=== PATIENT | female | born 1940 | race Caucasian/White ===

== ENCOUNTER 2018-12-25 13:45 | Emergency (ER) | payer MEDICARE, BC ==
[~2018-12-25] VITALS: Ht 170.2 cm; Wt 95.0 kg
[2018-12-25] MEDS ORDERED: ATENOLOL25 MG PO (14:21)
[2018-12-25] MEDS ORDERED: CIPROFLOXACN500 MG PO (14:21)
[2018-12-25] MEDS ORDERED: LORAZEPAM0.5 MG PO (14:22)
[2018-12-25] MEDS ORDERED: VFEND200 MG PO (14:22)
[2018-12-25] MEDS ORDERED: LISINOPRIL20 MG PO (14:22)
[2018-12-25] MEDS ORDERED: LYRICA50 MG PO (14:22)
[2018-12-25 14:31] LABS: HEMATOCRIT 25.1 % (37.0-47.0); HEMOGLOBIN 8.1 g/dl (12.0-16.0); IMMATURE GRANULOCYTES 0.7 % (0.0-5.0); MEAN CORPUSCULAR HGB CONC 32.3 g/L CALC (32.0-36.0); NEUT# 5.89 thou/uL (2.00-7.15); RED BLOOD COUNT 2.79 mill/uL (4.20-5.60); RED CELL DISTRI WIDTH 14.7 % (11.5-15.5)
[2018-12-25] MEDS ORDERED: DOXYCYC MONO100 M1 PO (14:38)
[2018-12-25] MEDS ORDERED: PREDNISONE50 MG PO (14:38)
[2018-12-25] MEDS ORDERED: CHERATUSSIN PO (14:38)
[2018-12-25 14:56] LABS: BUN 9 mg/dL (8-23); BUN/CREATININE RATIO 12 (12-20 (CALC)); CARBON DIOXIDE 27 mmol/l (22-30); CHLORIDE 101 mmol/l (95-108); CREATININE 0.8 mg/dL (0.5-1.0); GFR > 60 ML/MIN (>=60 (CALC)); GFR FOR AFR.AMER. > 60 ML/MIN (>=60 (CALC)); SODIUM 134 mmol/l (137-146)
[2018-12-25 15:01] LABS: ANION GAP 10 (6-22 (CALC)); POTASSIUM 4.1 mmol/l (3.5-5.1)
[2018-12-25] MEDS ORDERED: [UNRECOGNIZED DRUG - OTHER] PO (15:38)
[2018-12-25] MEDS ORDERED: VITAMIN D50000 UNIT PO (15:38)
[2018-12-25 15:46] LABS: ALBUMIN 2.4 g/dL (3.2-5.0); BILIRUBIN, TOTAL 0.3 mg/dL (0.0-1.4); TOTAL PROTEIN 4.9 g/dL (6.3-8.2)
[2018-12-25] MEDS ORDERED: PROAIR HFA108 MCG/AC PO (16:32)
[2018-12-25 16:44] VITALS: BP 125/51
== END 2018-12-25 16:44 | disposition home or self-care (01) ==
LOC: ED 13:45
PROVIDERS: Family Medicine
DX: J40 Bronchitis, not specified as acute or chronic (principal)

== ENCOUNTER 2019-01-01 16:52 | Emergency (ER) | payer MEDICARE, BC ==
[~2019-01-01] VITALS: Ht 170.2 cm; Wt 91.0 kg
[~2019-01-01 16:52] MED LIST: ATENOLOL25 MG PO; CHERATUSSIN PO; CIPROFLOXACN500 MG PO; DOXYCYC MONO100 M1 PO; LISINOPRIL20 MG PO; LORAZEPAM0.5 MG PO; LYRICA50 MG PO; PREDNISONE50 MG PO; PROAIR HFA108 MCG/AC PO; VFEND200 MG PO; VITAMIN D50000 UNIT PO; [UNRECOGNIZED DRUG - OTHER] PO
[2019-01-01] MEDS ORDERED: HYDROCODONE/ACE1 TAB PO (17:17)
[2019-01-01 18:06] LABS: IMMATURE GRANULOCYTES 1.9 % (0.0-5.0); MEAN CELL VOLUME 91.9 fL CALC (80.0-100.0); MEAN CORPUSCULAR HGB 28.5 pG CALC (26.0-32.0); NEUT# 9.23 thou/uL (2.00-7.15); RED BLOOD COUNT 3.58 mill/uL (4.20-5.60)
[2019-01-01 18:06] LABS: URINE BILIRUBIN - DIPSTICK NEGATIVE (NEGATIVE); URINE BLOOD DIPSTICK NEGATIVE (NEGATIVE); URINE COLOR YELLOW; URINE GLUCOSE - DIPSTICK NEGATIVE (NEGATIVE); URINE KETONE NEGATIVE (NEGATIVE); URINE LEUK ESTERASE NEGATIVE (NEGATIVE); URINE NITRITE - DIPSTICK NEGATIVE (Negative); URINE PROTEIN - DIPSTICK NEGATIVE (NEG-TRACE); URINE SPECIFIC GRAVITY <=1.005; URINE UROBILINOGEN - DIPSTICK 0.2 E.U./dL (0.2)
[2019-01-01 18:11] LABS: HEMATOCRIT 32.9 % (37.0-47.0); HEMOGLOBIN 10.2 g/dl (12.0-16.0)
[2019-01-01 18:29] LABS: ALKALINE PHOSPHATASE 93 u/l (38-126); ANION GAP 11 (6-22 (CALC)); BUN 16 mg/dL (8-23); BUN/CREATININE RATIO 24 (12-20 (CALC)); CARBON DIOXIDE 30 mmol/l (22-30); CHLORIDE 101 mmol/l (95-108); CREATININE 0.7 mg/dL (0.5-1.0); GFR > 60 ML/MIN (>=60 (CALC)); GFR FOR AFR.AMER. > 60 ML/MIN (>=60 (CALC)); POTASSIUM 4.4 mmol/l (3.5-5.1); SGOT/AST 22 u/l (9-36); SODIUM 137 mmol/l (137-146); TOTAL PROTEIN 5.8 g/dL (6.3-8.2)
[2019-01-01 18:30] LABS: BILIRUBIN, TOTAL 0.6 mg/dL (0.0-1.4)
[2019-01-01] MEDS ORDERED: MAGNESIUM296 ML/BTL PO (19:25)
[2019-01-01 19:57] VITALS: BP 143/79
== END 2019-01-01 19:57 | disposition home or self-care (01) ==
LOC: ED 16:52
DX: R35.0 Frequency of micturition (principal); R32 Unspecified urinary incontinence; K59.00 Constipation, unspecified